=== PATIENT | male | born 1985 | race Caucasian/White ===

== ENCOUNTER 2018-01-19 19:19 | Emergency (ER) | payer OTHER ==
[~2018-01-19] VITALS: Ht 185.4 cm; Wt 93.0 kg
[~2018-01-19 19:19] MED LIST: IBUP800T19 PO; TRAM-48 PO
--- NOTE | 2018-01-19 19:24 | ED.ADGEN ---
Past History Past Medical History: No Pertinent History Past Surgical History: No Surgical History Alcohol Use: Occasionally Drug Use: None Adult General Chief Complaint Chief Complaint " ...I got this painful hemorrhoid...".." Five years ago.. I had the same problem.. but I been sitting on a long flight.. and it got flared up again..." HPI HPI Patient is a 32 year old male [employer] who presents with above complaints of hemorrhoid pain. Patient has approximately 1 cm inflamed hemorrhoid. No active bleeding appreciated. No surrounding cellulitis. Has had history of some recent hard stools. Patient denies any history of colitis. No family history of colitis. Patient up-to-date with vaccinations. Recent travel from [place]. Review of Systems Review of Systems Constitutional: Denies fever or chills [] Eyes: Denies change in visual acuity, redness, or eye pain [] HENT: Denies nasal congestion or sore throat [] Respiratory: Denies cough or shortness of breath [] Cardiovascular: No additional information not addressed in HPI [] GI: Denies abdominal pain, nausea, vomiting, bloody stools or diarrhea [] complaints of hemorrhoid pain : Denies dysuria or hematuria [] Musculoskeletal: Denies back pain or joint pain [] Integument: Denies rash or skin lesions [] Neurologic: Denies headache, focal weakness or sensory changes [] Endocrine: Denies polyuria or polydipsia [] All other systems were reviewed and found to be within normal limits, except as documented in this note. Family History Family History Noncontributory Current Medications Current Medications Current Medications Medications (Trade) Dose Ordered Sig/[facility] Start Time Stop Time Status Last Admin Dose Admin Ketorolac Tromethamine (Toradol) 60 mg 1X ONCE 01/19/18 20:45 01/19/18 20:46 DC 01/19/18 20:28 60 MG Allergies Allergies Allergies Coded Allergies Type Severity Reaction Last Updated Verified No Known Drug Allergies 10/04/16 No Physical Exam Physical Exam Constitutional: Well developed, well nourished, no acute distress, non-toxic appearance. [] HENT: Normocephalic, atraumatic, bilateral external ears normal, oropharynx moist, no oral exudates, nose normal. [] Eyes: PERRLA, EOMI, conjunctiva normal, no discharge. [] Neck: Normal range of motion, no tenderness, supple, no stridor. [] Cardiovascular:Heart rate regular rhythm, no murmur [] Lungs & Thorax: Bilateral breath sounds clear to auscultation [] Abdomen: Bowel sounds normal, soft, no tenderness, no masses, no pulsatile masses. [] Hemorrhoid as per history of present illness Skin: Warm, dry, no erythema, no rash. [] Back: No tenderness, no CVA tenderness. [] Extremities: No tenderness, no cyanosis, no clubbing, ROM intact, no edema. [] Neurologic: Alert and oriented X 3, normal motor function, normal sensory function, no focal deficits noted. [] Psychologic: Affect normal, judgement normal, mood normal. [] Current Patient Data Vital Signs Vital Signs Date Time Temp Pulse Resp B/P (MAP) Pulse Ox O2 Delivery O2 Flow Rate FiO2 01/19/18 20:30 82 18 128/85 (99) 99 Room Air 01/19/18 19:37 99.0 EKG EKG [] Radiology/Procedures Radiology/Procedures [] Course & Med Decision Making Course & Med Decision Making Pertinent Labs and Imaging studies reviewed. (See chart for details). Patient to do sitz baths. Patient avoid constipation. Patient use Anusol suppositories. Patient to use the Dubicaine jelly. Tylenol and Ibuprofen for pain. Recommend patient to consider GI consult-for colorectal surgeon. Return if any concerns. [] Final Impression Final Impression 1. Rectal Pain[]- Hemorrhoid Problems: Dragon Disclaimer Dragon Disclaimer This electronic medical record was generated, in whole or in part, using a voice recognition dictation system. KAITLIN VIEIRA MD Jan 19, 2018 19:24
[2018-01-19] MEDS ORDERED: HYDR25SU18 RC (19:29)
[2018-01-19] MEDS ORDERED: DIBU28OI RC (19:29)
[2018-01-19 20:30] VITALS: BP 128/85
[2018-01-19] MEDS ORDERED: KETOROLAC 60 MG/2 ML VIAL. IM ONE (20:45)
== END 2018-01-19 20:35 | disposition home or self-care (01) ==
LOC: ER 19:19
DX: K64.9 Unspecified hemorrhoids (principal)
CPT/HCPCS: 96372; 99283; J1885